=== PATIENT | male | born 1980 | race Caucasian/White ===

== ENCOUNTER 2019-06-12 18:13 | Emergency (ER) | payer OTHER ==
[2019-06-12 18:23] VITALS: BP 150/88
--- NOTE | 2019-06-12 18:33 | ED Physician Documentation ---
History of Present Illness - Stated complaint Stated Complaint: RASH - Chief complaint Chief Complaint: General - History obtained from History obtained from: Patient - History of Present Illness Timing: Other (About a week's worth of a painful lesion on the left elbow. Note the both of his daughters have impetigo.) Review of Systems Constitutional: reports: Fatigue. denies: Fever, Chills Cardiac: denies: Chest pain / pressure, Palpitations Respiratory: denies: Dyspnea, Cough PD PAST MEDICAL HISTORY - Present Medications Home Medications: Ambulatory Orders Medication Instructions Recorded Confirmed Baclofen 10 mg PO 06/12/19 Cephalexin [Keflex] 500 mg PO Q6H #28 capsule 06/12/19 Gabapentin 100 mg PO 06/12/19 PARoxetine [Paxil] 10 mg PO DAILY 06/12/19 06/12/19 oxyCODONE [Roxicodone] 06/12/19 06/12/19 - Allergies Allergies/Adverse Reactions: Allergies Allergy/AdvReac Type Severity Reaction Status Date / Time No Known Drug Allergies Allergy Verified 06/12/19 18:22 PD ED PE NORMAL - Vitals Vital signs reviewed: Yes - General General: Alert and oriented X 3, No acute distress - Extremities Extremities: Other (There is a quarter sized area of impetigo on the left elbow without swelling or limited range of motion) - Neuro Neuro: Alert and oriented X 3, Normal speech Results - Vitals Vitals: Vital Signs - 24 hr 06/12/19 18:20 Temperature 36.9 C Heart Rate 103 H Respiratory 20 Rate Blood Pressure 150/88 H O2 Saturation 97 Oxygen O2 Source Room air Departure - Departure Disposition: 01 Home, Self Care Clinical Impression: Impetigo Condition: Good Record reviewed to determine appropriate education?: Yes Instructions: Impetigo Prescriptions: Cephalexin [Keflex] 500 mg PO Q6H #28 capsule Comments: Your blood pressure was elevated today on check into the emergency department. This does not mean that you have hypertension, it is a common phenomenon to come to the emergency department and have elevated blood pressure. I recommend that you see your primary care physician within the week to have it rechecked when you are feeling better.
== END 2019-06-12 18:41 | disposition home or self-care (01) ==
LOC: ED 18:13
DX: L01.00 Impetigo, unspecified (principal)
CPT/HCPCS: 99282; 99283

== ENCOUNTER 2020-05-31 23:13 | Emergency (ER) | payer OTHER ==
[2020-05-31 23:28] VITALS: BP 177/99
[2020-06-01] MEDS ORDERED: DEXAMETHASONE 10 MG/ML VIAL PO STA (00:01)
[2020-06-01] MEDS ORDERED: CHERRY SYRUP 10 ML UDC PO ONE (00:01)
[2020-06-01] MEDS ORDERED: HYDROcod/ACET 5/325 Prepack 4 PO STA (00:01)
--- NOTE | 2020-06-01 00:03 | ED Physician Documentation ---
PD HPI HEENT - Stated complaint Stated Complaint: JAW PX - Chief complaint Chief Complaint: Heent - History obtained from History obtained from: Patient - History of Present Illness Timing - onset: How many weeks ago (4) Timing - duration: Months (1) Timing - details: Gradual onset, Still present, Waxing and waning Location: Tooth Improves: Medication Worsens: Everything Associated symptoms: Trismus, Headache. No: Fever, Congestion, Rhinorrhea, Swol mundo nodes, Facial swelling, Cough Similar symptoms before: Diagnosis (bad tooth and bite adjustment) Recently seen: Other - Additional information Additional information: 39-year-old male who is had some recent work done on his molars on the left side has developed worsening pain he did go in and have a bite adjustment done and he continues to have some issue with pain especially if he bites down and today he is having enough issue with pain that he is not he been able to get to sleep. He would like some type of relief. He does have an appointment to see the dentist again on 09 June. He has not used antibiotics with this course of treatment. Review of Systems Constitutional: denies: Fever Eyes: denies: Decreased vision Ears: denies: Ear pain Nose: denies: Rhinorrhea / runny nose, Congestion Throat: reports: Dental pain / toothache. denies: Sore throat Cardiac: denies: Chest pain / pressure, Palpitations Respiratory: denies: Dyspnea, Cough PD PAST MEDICAL HISTORY - Past Medical History Past Medical History: Yes Psych: Depression Musculoskeletal: Chronic back pain, Other Other Past Medical History: Sciatica lower back area - Past Surgical History Past Surgical History: Yes - Present Medications Home Medications: Ambulatory Orders Medication Instructions Recorded Confirmed Gabapentin 100 mg PO TID 06/12/19 05/31/20 PARoxetine [Paxil] 10 mg PO DAILY 06/12/19 05/31/20 Amoxicillin 875 mg PO BID #14 tablet 06/01/20 Gabapentin [Neurontin] 100 mg PO TID #30 capsule 06/01/20 - Allergies Allergies/Adverse Reactions: Allergies Allergy/AdvReac Type Severity Reaction Status Date / Time No Known Drug Allergies Allergy Verified 05/31/20 23:28 - Social History Does the pt smoke?: No Smoking Status: Never smoker Does the pt drink ETOH?: Yes Does the pt have substance abuse?: Yes - Immunizations Immunizations are current?: Yes - POLST Patient has POLST: No PD ED PE NORMAL - Vitals Vital signs reviewed: Yes (hypertensive ) - General General: Alert and oriented X 3, No acute distress, Well developed/nourished - HEENT HEENT: Atraumatic, PERRL, EOMI, Other (There are molars in the back that have been had recent work done they are both tender there is no gingival inflammation or deformity.) - Neck Neck: Supple, no meningeal sign, No bony TTP - Respiratory Respiratory: No respiratory distress - Derm Derm: Normal color, Warm and dry, No rash - Extremities Extremities: No deformity, No edema - Neuro Neuro: Alert and oriented X 3, lumber loader 2-12 intact, No motor deficit, No sensory deficit, Normal speech Eye Opening: Spontaneous Motor: Obeys Commands Verbal: Oriented GCS Score: 15 - Psych Psych: Normal mood, Normal affect Results - Vitals Vitals: Vital Signs - 24 hr 05/31/20 23:15 Temperature 36.4 C L Heart Rate 79 Respiratory 16 Rate Blood Pressure 177/99 H O2 Saturation 96 Oxygen O2 Source Room air PD MEDICAL DECISION MAKING - ED course Complexity details: considered differential, d/w patient ED course: 39-year-old male with dental pain has persistence of symptoms despite bite adjustment and he has inflammation and pain to the whole side of his face. He is given a dose of dexamethasone 10 mg orally [address] will place him on some amoxicillin and tonight we will provide him with some hydrocodone. Departure - Departure Disposition: 01 Home, Self Care Clinical Impression: Pain, dental Condition: Stable Instructions: ED Tooth Pain Follow-Up: Your, doctor [Other] Prescriptions: Amoxicillin 875 mg PO BID #14 tablet Gabapentin [Neurontin] 100 mg PO TID #30 capsule
[2020-06-01] MEDS ORDERED: AMOXICILLIN 250 MG Prepack 6 PO STA (00:14)
[2020-06-01] MEDS ORDERED: AMOXICILLIN 250 MG Prepack 6 PO SCH (06:00)
== END 2020-06-01 00:25 | disposition home or self-care (01) ==
LOC: ED 23:13
DX: K08.89 Other specified disorders of teeth and supporting structures (principal)
CPT/HCPCS: 99282; 99284; A9270

== ENCOUNTER 2022-05-24 14:14 | Outpatient (CLI) | payer OTHER ==
[2022-05-24] MEDS ORDERED: DIATRIZOATE MEGLU/DIATRIZO SOD 30 ML BOTTLE PO ONE ×2 (14:43→15:50)
[2022-05-24 14:45] LABS: CREATININE 0.9 mg/dL (0.6-1.2)
--- NOTE | 2022-05-24 16:00 | CT Report ---
PROCEDURE: Abdomen/Pelvis W INDICATIONS: DIVERTICULITIS CONTRAST: IV CONTRAST: Optiray 320 ml: 100 PO CONTRAST: Optiray 320 ml50 TECHNIQUE: After the administration of oral and intravenous contrast, 5 mm thick sections acquired from the diap hragms to the symphysis. 5 mm thick coronal and sagittal reformats were acquired. For radiation dos e reduction, the following was used: automated exposure control, adjustment of mA and/or kV accordin g to patient size. COMPARISON: None. FINDINGS: Image quality: Excellent. ABDOMEN: Lung bases: Lung bases are clear. Heart size is normal. Solid organs: Liver and spleen are normal in size and enhancement. Gallbladder is unremarkable Denis iary system is non dilated. Pancreas enhances normally. No adrenal nodules. Kidneys demonstrate no rmal size and enhancement, without hydronephrosis. Peritoneum and bowel: Bowel loops demonstrate normal wall thickness and caliber. Scattered divertic sonny are present without associated change. There is no associated inflammation. No free fluid or air. Nodes and vessels: No retroperitoneal or mesenteric adenopathy by size criteria. Aorta and inferior vena cava are normal in size. Miscellaneous: No ventral hernias. PELVIS: Genitourinary: Bladder wall thickness is normal. Miscellaneous: No inguinal hernias or adenopathy. Bones: No suspicious bony lesions. No vertebral body compression fractures. IMPRESSION: Diverticulosis without associated inflammatory change. Reviewed by: Aurora Manning MD on 05/24/2022 3:59 PM PDT Approved by: Aurora Manning MD on 05/24/2022 3:59 PM PDT Station ID: [id number]
== END 2022-05-24 14:15 | disposition home or self-care (01) ==
LOC: DI 14:14
PROVIDERS: ATTEND Internal Medicine
DX: K57.30 Diverticulosis of large intestine without perforation or abscess without bleeding (principal); Z79.899 Other long term (current) drug therapy
CPT/HCPCS: 36415; 74177; 82565; Q9963; Q9967

== ENCOUNTER 2023-01-11 13:01 | Outpatient (CLI) | payer OTHER | END 2023-01-11 13:02 | disposition home or self-care (01) | LOC: DI 13:01 | PROVIDERS: ATTEND Internal Medicine | DX: Q24.9 Congenital malformation of heart, unspecified (principal); I77.810 Thoracic aortic ectasia | CPT/HCPCS: 93306 ==

== ENCOUNTER 2023-08-18 09:17 | Emergency (ER) | payer OTHER ==
[2023-08-18 09:35] VITALS: O2SAT 98
--- NOTE | 2023-08-18 11:08 | ED Physician Documentation ---
PD HPI URI - Stated complaint Stated Complaint: COVID+,FEVER - Chief complaint Chief Complaint: Heent - History obtained from History obtained from: Patient - History of Present Illness Timing - onset: How many days ago (2-3) Timing duration: Days (2-3) Timing details: Gradual onset, Still present (rapidly worsening degee of weakness, fevers, malaise and now also significant muscle aches.) Associated symptoms: Fever, Chills, Sweats, Nasal congestion, Dry cough, Other (significant body aches) Contributing factors: Sick contact (was around some sick folk at [employer] 5 days ago and started ill 3 days ago, much worse the past 2 days. He talked with his mother who suggested going to ER for antiviral meds.), Other (home COVID test positive.) Improves by: No: Medication (ibuprofen and TYlenol decrease fevers but not effective for body aches.) Similar symptoms before: Has not had sx before Recently seen: Not recently seen Review of Systems Constitutional: reports: Fever, Chills, Myalgias, Fatigue Respiratory: reports: Cough. denies: Hemoptysis, Wheezing GI: reports: Nausea. denies: Abdominal Pain, Vomiting, Diarrhea Skin: denies: Rash Musculoskeletal: denies: Neck pain Neurologic: reports: Generalized weakness. denies: Altered mental status, Headache PD PAST MEDICAL HISTORY - Past Medical History Past Medical History: Yes Cardiovascular: None Respiratory: None Psych: Depression Musculoskeletal: Chronic back pain, Other - Past Surgical History Past Surgical History: Yes - Present Medications Home Medications: Ambulatory Orders Medication Instructions Recorded Confirmed HYDROcod/ACETAM 5/325 [[place] 5/325] 1 ea PO Q6H PRN #10 tablet 08/18/23 Ondansetron Odt [Zofran] 4 mg TL Q6H PRN #10 tablet 08/18/23 - Allergies Allergies/Adverse Reactions: Allergies Allergy/AdvReac Type Severity Reaction Status Date / Time No Known Drug Allergies Allergy Verified 08/18/23 09:31 - Social History Does the pt smoke?: No Smoking Status: Never smoker Does the pt drink ETOH?: Yes Does the pt have substance abuse?: Yes - Immunizations Immunizations are current?: Yes - POLST Patient has POLST: No PD ED PE NORMAL - Vitals Vital signs reviewed: Yes - General General: Alert and oriented X 3, No acute distress, Well developed/nourished - Neck Neck: Supple, no meningeal sign, No adenopathy - Cardiac Cardiac: RRR, No murmur - Respiratory Respiratory: Clear bilaterally - Abdomen Abdomen: Soft, Non tender - Derm Derm: Normal color, Warm and dry - Neuro Neuro: Alert and oriented X 3, No motor deficit, Normal speech Results - Vitals Vitals: Vital Signs - 24 hr 08/18/23 08/18/23 09:28 11:53 Temperature 35.6 C L Heart Rate 82 72 Respiratory 20 18 Rate Blood Pressure 146/96 H 127/99 H O2 Saturation 98 98 Oxygen O2 Source Room air PD Medical Decision Making - ED course Complexity details: considered differential (having fevers, aches, nausea from COVID. He would like antiviral meds and can also give Zofran for nausea. Having muscle pains keeping from sleeping. Can treat with meds. ), d/w patient Departure - Departure Disposition: 01 Home, Self Care Clinical Impression: Myalgia, Acute viral syndrome, COVID-19 Condition: Stable Instructions: ED Viral Syndrome Follow-Up: Claudia Mendiola MD [Primary Care Provider] - Prescriptions: HYDROcod/ACETAM 5/325 [[place] 5/325] 1 ea PO Q6H PRN #10 tablet PRN Reason: Pain Ondansetron Odt [Zofran] 4 mg TL Q6H PRN #10 tablet PRN Reason: Nausea / Vomiting Comments: Stay well-hydrated. Use ondansetron/Zofran if needed for nausea. Continue with Tylenol every 4-6 hours if needed for fevers and pains. Add in the ibuprofen 400 to 600 mg 3 times a day as well if needed. If you are having severe enough muscle aches and pains, I did prescribe small amount of hydrocodone's stronger pain medicine to use if needed. The symptoms you are describing sound consistent with a good immune response and the effect of COVID. Commonly the symptoms are a 5 or 6-day timeframe with the persistent weakness aches and cough for several weeks often. I sent your prescriptions to [facility]. They are not open today but it could be gotten tomorrow. [facility] is open today until 7 pm; call us if you wish the script changed later. We also dispensed you the antiviral combination medication, named Paxlovid. It is a combination of 2 antiviral medications for a total of 3 tablets taken twice daily for 5 days. If you do find you are experiencing increased nausea upset stomach or diarrhea after taking it, you can discontinue use without any problems. Side effect incidence is about 5 to 10%. This does try to decrease the amount of viral load so abbreviate the course of the illness. Forms: PCP List Discharge Date/Time: 08/18/23 12:27
[2023-08-18 12:02] VITALS: BP 127/99
[2023-08-18] MEDS ORDERED: ONDANSETRON ODT 4 MG TABLET TL STA (12:06)
[2023-08-18] MEDS ORDERED: NIRMATRELVIR/RITONAVIR PREPACK PO STA (12:07)
== END 2023-08-18 12:27 | disposition home or self-care (01) ==
LOC: ED 09:17
DX: U07.1 COVID-19 (principal)
CPT/HCPCS: 99282; 99284; J3490; Q0162

== ENCOUNTER 2023-08-29 08:07 | Emergency (ER) | payer OTHER ==
[2023-08-29] MEDS ORDERED: KETOROLAC 15 MG/ML VIAL IVP STA (08:19)
[2023-08-29] MEDS ORDERED: HYDROmorphone 2 MG/ML VIAL IVP STA (08:19)
--- NOTE | 2023-08-29 08:20 | ED Physician Documentation ---
History of Present Illness - Stated complaint Stated Complaint: EXCRUCIATING BACK PX/DISCOMFORT - Chief complaint Chief Complaint: Back Pain - History obtained from History obtained from: Patient - Additonal information Additional information: 42-year-old gentleman with history of back issues. 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 He has had similar issues in the past. States pain is excruciating. Denies weakness, numbness, tingling of the lower extremities or groin. No incontinence. No fevers. PD PAST MEDICAL HISTORY - Past Medical History Past Medical History: Yes Cardiovascular: None Respiratory: None Psych: Depression Musculoskeletal: Chronic back pain, Other - Past Surgical History Past Surgical History: Yes - Present Medications Home Medications: Ambulatory Orders Medication Instructions Recorded Confirmed HYDROcod/ACETAM 5/325 [[place] 5/325] 1 ea PO Q6H PRN #10 tablet 08/18/23 Ondansetron Odt [Zofran] 4 mg TL Q6H PRN #10 tablet 08/18/23 Cyclobenzaprine [Flexeril] 10 mg PO TID PRN #20 tablet 08/29/23 Oxycodone HCl/Acetaminophen 1 - 2 each PO Q6H PRN #14 tablet 08/29/23 [Percocet 5-325 mg Tablet] - Allergies Allergies/Adverse Reactions: Allergies Allergy/AdvReac Type Severity Reaction Status Date / Time No Known Drug Allergies Allergy Verified 08/29/23 08:18 - Social History Does the pt smoke?: No Smoking Status: Never smoker Does the pt drink ETOH?: Yes Does the pt have substance abuse?: Yes - Immunizations Immunizations are current?: Yes - POLST Patient has POLST: No PD ED PE NORMAL - Vitals Vital signs reviewed: Yes - General General: Alert and oriented X 3, Other (He is inconsolable and writhing in pain.) - Abdomen Abdomen: Other (Hard to tell if he is tender to the back or abdomen on initial evaluation due to inconsolability and writhing in pain.) - Back Back: Other (Hard to tell if he is tender to the back or abdomen on initial evaluation due to inconsolability and writhing in pain.) - Neuro Neuro: Alert and oriented X 3 Results - Vitals Vitals: Vital Signs - 24 hr 08/29/23 08/29/23 08:15 08:34 Temperature 36.9 C Heart Rate 76 91 Respiratory 20 20 Rate Blood Pressure 135/72 H 144/91 H O2 Saturation 97 93 Oxygen O2 Source Room air - Labs Labs: Laboratory Tests 08/29/23 08:24 WBC 10.0 RBC 5.38 Hgb 14.7 Hct 45.0 MCV 83.6 MCH 27.3 MCHC 32.7 RDW 12.0 Plt Count 387 MPV 9.6 Neut # (Auto) 5.6 Lymph # (Auto) 3.2 [place]ah # (Auto) 1.0 Eos # (Auto) 0.2 Baso # (Auto) 0.0 Absolute Nucleated RBC 0.00 Nucleated RBC % 0.0 PD Medical Decision Making - ED course ED course: 42-year-old gentleman with history of low back issues and severe low back pain, seemingly musculoskeletal but with limited ability to examine him on first arrival due to inconsolability and writhing in pain. After the administration of IV Toradol and Dilaudid he is much more comfortable and on reexamination at 8:45 AM states he only has a dull ache. Pain is in the low lumbar spine and consistent with prior episodes of low back pain and spasm. The patient has equal and normal Achilles and patellar reflexes bilaterally. Normal sensation in all areas of the legs. Patient denies saddle anesthesia. Normal strength in flexion-extension at the ankles, knees, and flexion of the hips. Departure - Departure Disposition: 01 Home, Self Care Clinical Impression: Acute exacerbation of chronic low back pain Condition: Good Record reviewed to determine appropriate education?: Yes Instructions: ED Spasm Back No Trauma Prescriptions: Cyclobenzaprine [Flexeril] 10 mg PO TID PRN #20 tablet PRN Reason: Spasms Oxycodone HCl/Acetaminophen [Percocet 5-325 mg Tablet] 1 - 2 each PO Q6H PRN #14 tablet PRN Reason: pain Comments: I sent your prescription electronically to the [facility] in [place]. Call y our doctor to arrange a follow-up appointment, make the next available appointment. In the interim, return anytime if worse or if new symptoms develop. I am prescribing a short course of narcotic pain medication for you. These are potentially dangerous and addictive medications that should be used carefully. These medications may constipate you. Take an [id number]-[id number] stool softener (docusate) twice daily with plenty of water while taking these medications. If you go 24 hours without a bowel movement, take qino-ics-dohbirc miralax, per package instructions. Do not drink or drive while taking these medications. If you received narcotic or sedating medications while in the emergency department, do not drive for 24 hours. Store this medication in a safe, secure place and out of reach of children. It is a violation of federal law to give or sell this medication to another person or to use in a manner other than prescribed. The ED will not refill narcotic prescriptions, including prescriptions lost or stolen. To dispose of unwanted medications: 1. [facility] provides a drop box for medication in pill form only (no liquids) 8:00 am to 4:30 p.m. Tuesday-Tuesday in the lobby of the [facility], [address] [place] [address]. Empty pills into ziplock bag before disposal. Call [phone] for information. 2.[employer] is a free service available to all [facility] residents. Go to [email or web address] Note that many narcotic pain relievers also contain Tylenol/acetaminophen. Please ensure that your total dose of acetaminophen from all sources does not exceed 3 g (3000 mg) per day.
[2023-08-29 08:34] LABS: BASOPHILS % (AUTO) 0.4 %; EOSINOPHILS # (AUTO) 0.2 10^3/uL (0.0-0.7); EOSINOPHILS % (AUTO) 1.7 %; HGB - HEMOGLOBIN 14.7 g/dL (14.0-18.0); LYMPHOCYTES # (AUTO) 3.2 10^3/uL (1.5-3.5); LYMPHOCYTES % (AUTO) 31.9 %; MEAN CORPUSCULAR HEMOGLOBIN 27.3 pg (27.0-31.0); MEAN CORPUSCULAR HGB CONC 32.7 g/dL (32.0-36.0); MEAN CORPUSCULAR VOLUME 83.6 fL (80.0-94.0); MEAN PLATELET VOLUME 9.6 fL (7.4-11.4); MONOCYTES % (AUTO) 9.7 %; NEUTROPHILS # (AUTO) 5.6 10^3/uL (1.5-6.6); NEUTROPHILS % (AUTO) 55.8 %; PLT - PLATELET COUNT 387 10^3/uL (130-450); RED BLOOD COUNT 5.38 10^6/uL (4.70-6.10)
[2023-08-29 08:52] LABS: CALCIUM 9.5 mg/dL (8.5-10.3); POTASSIUM 3.3 mmol/L (3.5-4.5)
[2023-08-29 09:26] VITALS: BP 122/73; O2SAT 100
== END 2023-08-29 09:25 | disposition home or self-care (01) ==
LOC: ED 08:07
DX: M54.50 Low back pain, unspecified (principal); G89.29 Other chronic pain
CPT/HCPCS: 36415; 80048; 85025; 96374; 99283; 99284; J1170

== ENCOUNTER 2023-11-11 12:54 | Outpatient (CLI) | payer OTHER ==
--- NOTE | 2023-11-11 14:33 | XRAY Report ---
PROCEDURE: Knee 2V LT INDICATIONS: ACUTE LEFT KNEE PAIN TECHNIQUE: 2 views of the knee(s) were acquired. COMPARISON: None. FINDINGS: Bones: No fractures or dislocations. No suspicious bony lesions. Soft tissues: No knee joint effusion. No suspicious soft tissue calcifications or masses. IMPRESSION: No visualized acute fracture or dislocation. However, occult injury cannot be excluded. Recommend savannah rt interval imaging follow-up in 7-10 days as clinically indicated for additional evaluation. Reviewed by: Aurora Manning MD on 11/11/2023 2:31 PM PST Approved by: Aurora Manning MD on 11/11/2023 2:31 PM PST Station ID: [id number]
== END 2023-11-11 12:55 | disposition home or self-care (01) ==
LOC: DI 12:54
PROVIDERS: ATTEND Nurse Practitioner Family
DX: M25.562 Pain in left knee (principal)